=== PATIENT | male | born 1930 | race Caucasian/White ===

== ENCOUNTER 2017-04-08 09:29 | Outpatient (CLI) | payer MEDICARE, BC ==
[2017-04-08 13:25] LABS: BASOPHILS # (AUTO) 0.1 10^3/uL (0.0-0.1); BASOPHILS % (AUTO) 0.6 %; EOSINOPHILS # (AUTO) 0.4 10^3/uL (0.0-0.7); EOSINOPHILS % (AUTO) 3.6 %; HCT - HEMATOCRIT 47.3 % (42.0-52.0); LYMPHOCYTES # (AUTO) 3.4 10^3/uL (1.5-3.5); LYMPHOCYTES % (AUTO) 34.2 %; MEAN CORPUSCULAR HEMOGLOBIN 31.9 pg (27.0-31.0); MEAN CORPUSCULAR HGB CONC 33.8 g/dL (32.0-36.0); MEAN CORPUSCULAR VOLUME 94.4 fL (80.0-94.0); MEAN PLATELET VOLUME 8.5 fL (7.4-11.4); MONOCYTES # (AUTO) 1.1 10^3/uL (0.0-1.0); MONOCYTES % (AUTO) 10.8 %; NEUTROPHILS # (AUTO) 5.1 10^3/uL (1.5-6.6); NEUTROPHILS % (AUTO) 50.8 %; RED BLOOD COUNT 5.01 10^6/uL (4.70-6.10)
[2017-04-08 14:08] LABS: ALBUMIN/GLOBULIN RATIO 1.2 (1.0-2.2); BILIRUBIN,TOTAL 0.9 mg/dL (0.2-1.0); BUN - BLOOD UREA NITROGEN 13 mg/dL (6-20); CALCIUM 9.2 mg/dL (8.5-10.3); CARBON DIOXIDE - CO2 22 mmol/L (21-32); CHLORIDE 105 mmol/L (101-111); CHOL/HDL RATIO 4.2 (<5.0); CHOLESTEROL 206 mg/dL; GFR - MDRD 71 (>89); GLUCOSE 97 mg/dL (70-100); HDL CHOLESTEROL 49 mg/dL; LDL/HDL RATIO 2.6 (<3.6); SODIUM 136 mmol/L (135-145); TOTAL PROTEIN 7.6 g/dL (6.7-8.2); TRIGLYCERIDES 149 mg/dL; VLDL CHOLESTEROL 30 mg/dL
[2017-04-08 14:27] LABS: HEMOGLOBIN A1C 0.65 g/dL
== END 2017-04-08 09:30 | disposition home or self-care (01) ==
LOC: LAB.R 09:29
PROVIDERS: ATTEND Internal Medicine
DX: R73.9 Hyperglycemia, unspecified (principal); C61 Malignant neoplasm of prostate; M19.90 Unspecified osteoarthritis, unspecified site; K30 Functional dyspepsia; Z79.899 Other long term (current) drug therapy
CPT/HCPCS: 80053; 80061; 83036; 84153; 84443; 85025

== ENCOUNTER 2017-12-20 10:28 | Outpatient (CLI) | payer MEDICARE, BC | END 2017-12-20 10:29 | disposition home or self-care (01) | LOC: SC 10:28 | PROVIDERS: ATTEND Internal Medicine Pulmonary Disease | DX: G47.10 Hypersomnia, unspecified (principal); R06.81 Apnea, not elsewhere classified; R06.83 Snoring; G31.84 Mild cognitive impairment of uncertain or unknown etiology | CPT/HCPCS: 99203; G0463; 99212 ==

== ENCOUNTER 2018-02-03 20:45 | Outpatient (CLI) | payer MEDICARE, BC | END 2018-02-03 20:46 | disposition home or self-care (01) | LOC: SC 20:45 | PROVIDERS: ATTEND Internal Medicine Pulmonary Disease | DX: G47.33 Obstructive sleep apnea (adult) (pediatric) (principal); G47.61 Periodic limb movement disorder | CPT/HCPCS: 95810 ==

== ENCOUNTER 2018-02-22 11:05 | Outpatient (CLI) | payer MEDICARE, BC | END 2018-02-22 11:06 | disposition home or self-care (01) | LOC: SC 11:05 | PROVIDERS: ATTEND Internal Medicine Pulmonary Disease | DX: G47.33 Obstructive sleep apnea (adult) (pediatric) (principal) | CPT/HCPCS: 99213; G0463; 99212 ==

== ENCOUNTER 2018-04-27 20:46 | Outpatient (CLI) | payer MEDICARE, BC | END 2018-04-27 20:47 | disposition home or self-care (01) | LOC: SC 20:46 | PROVIDERS: ATTEND Internal Medicine Pulmonary Disease | DX: G47.33 Obstructive sleep apnea (adult) (pediatric) (principal); G47.61 Periodic limb movement disorder; R09.02 Hypoxemia | CPT/HCPCS: 95811 ==

== ENCOUNTER 2018-05-12 09:38 | Outpatient (CLI) | payer MEDICARE, BC | END 2018-05-12 09:39 | disposition home or self-care (01) | LOC: SC 09:38 | PROVIDERS: ATTEND Nurse Practitioner Family | DX: G47.33 Obstructive sleep apnea (adult) (pediatric) (principal); R09.02 Hypoxemia; G47.61 Periodic limb movement disorder | CPT/HCPCS: 99215; G0463; 99212 ==

== ENCOUNTER → 2018-05-19 | Outpatient (CLI) | payer MEDICARE, BC ==
[2018-05-19 13:43] LABS: BASOPHILS # (AUTO) 0.1 10^3/uL (0.0-0.1); BASOPHILS % (AUTO) 0.6 %; EOSINOPHILS # (AUTO) 0.3 10^3/uL (0.0-0.7); EOSINOPHILS % (AUTO) 2.9 %; HGB - HEMOGLOBIN 14.9 g/dL (14.0-18.0); LYMPHOCYTES # (AUTO) 3.1 10^3/uL (1.5-3.5); LYMPHOCYTES % (AUTO) 35.4 %; MEAN CORPUSCULAR HEMOGLOBIN 32.4 pg (27.0-31.0); MEAN CORPUSCULAR HGB CONC 34.1 g/dL (32.0-36.0); MEAN CORPUSCULAR VOLUME 95.2 fL (80.0-94.0); MEAN PLATELET VOLUME 8.3 fL (7.4-11.4); MONOCYTES # (AUTO) 1.1 10^3/uL (0.0-1.0); MONOCYTES % (AUTO) 12.4 %; NEUTROPHILS # (AUTO) 4.3 10^3/uL (1.5-6.6); NEUTROPHILS % (AUTO) 48.7 %; PLT - PLATELET COUNT 262 10^3/uL (130-450); WHITE BLOOD COUNT 8.8 x10^3/uL (4.8-10.8)
[2018-05-19 14:00] LABS: ALBUMIN 3.8 g/dL (3.2-5.5); ALBUMIN/GLOBULIN RATIO 1.2 (1.0-2.2); BILIRUBIN,TOTAL 0.9 mg/dL (0.2-1.0); CALCIUM 9.1 mg/dL (8.5-10.3); TOTAL PROTEIN 7.1 g/dL (6.7-8.2)
== END ==
LOC: LAB.R 08:54
PROVIDERS: ATTEND Internal Medicine
DX: C61 Malignant neoplasm of prostate (principal); Z79.899 Other long term (current) drug therapy; M19.90 Unspecified osteoarthritis, unspecified site; K30 Functional dyspepsia
CPT/HCPCS: 80053; 85025

== ENCOUNTER 2018-05-31 08:05 | Outpatient (CLI) | payer MEDICARE, BC ==
[2018-05-31 18:04] LABS: HB2 TOTAL 17.1 g/dL; HEMOGLOBIN A1C 0.62 g/dL; HEMOGLOBIN A1C % 5.5 % (4.6-6.2)
== END 2018-05-31 08:06 | disposition home or self-care (01) ==
LOC: LAB.R 08:05
PROVIDERS: ATTEND Internal Medicine
DX: C61 Malignant neoplasm of prostate (principal); R73.9 Hyperglycemia, unspecified
CPT/HCPCS: 82947; 83036; 84153

== ENCOUNTER 2018-06-08 09:19 | Outpatient (CLI) | payer MEDICARE, BC ==
--- NOTE | 2018-06-08 10:19 | XRAY Report ---
Reason: DYSPENA Procedure Date: 06/08/2018 Accession Number: [id number] / [id number] Procedure: XR - Chest 2 View X-Ray CPT Code: 64230 FULL RESULT: EXAM: CHEST RADIOGRAPHY EXAM DATE: 06/08/2018 09:23 AM. CLINICAL HISTORY: Dyspnea. COMPARISON: None. TECHNIQUE: 2 views. FINDINGS: Lungs/Pleura: Increased subtle opacity at the left lung base and right midlung. No sizable pleural effusion or pneumothorax. Mediastinum: Heart and mediastinal contours are unremarkable. Other: None. IMPRESSION: Subtle airspace opacities may represent atypical pneumonia. RADIA
== END 2018-06-08 09:20 | disposition home or self-care (01) ==
LOC: DI 09:19
PROVIDERS: ATTEND Internal Medicine
DX: R91.8 Other nonspecific abnormal finding of lung field (principal); R06.00 Dyspnea, unspecified
CPT/HCPCS: 71046; 94010

== ENCOUNTER 2018-06-13 09:49 | Outpatient (CLI) | payer MEDICARE, BC | END 2018-06-13 09:50 | disposition home or self-care (01) | LOC: SC 09:49 | PROVIDERS: ATTEND Nurse Practitioner Family | DX: G47.33 Obstructive sleep apnea (adult) (pediatric) (principal); R09.02 Hypoxemia | CPT/HCPCS: 99215; G0463; 99212 ==

== ENCOUNTER 2018-09-08 10:06 | Outpatient (CLI) | payer MEDICARE, BC | END 2018-09-08 10:07 | disposition home or self-care (01) | LOC: SC 10:06 | PROVIDERS: ATTEND Nurse Practitioner Family | DX: G47.33 Obstructive sleep apnea (adult) (pediatric) (principal); R09.02 Hypoxemia | CPT/HCPCS: 99214; G0463; 99212 ==

== ENCOUNTER 2018-10-19 08:21 | Outpatient (CLI) | payer MEDICARE, BC ==
[2018-10-19 08:45] LABS: BASOPHILS # (AUTO) 0.1 10^3/uL (0.0-0.1); BASOPHILS % (AUTO) 1.3 %; EOSINOPHILS # (AUTO) 0.2 10^3/uL (0.0-0.7); EOSINOPHILS % (AUTO) 2.4 %; LYMPHOCYTES # (AUTO) 3.1 10^3/uL (1.5-3.5); LYMPHOCYTES % (AUTO) 36.8 %; MEAN CORPUSCULAR HEMOGLOBIN 31.8 pg (27.0-31.0); MEAN CORPUSCULAR HGB CONC 33.2 g/dL (32.0-36.0); MEAN CORPUSCULAR VOLUME 95.6 fL (80.0-94.0); MEAN PLATELET VOLUME 7.5 fL (7.4-11.4); MONOCYTES % (AUTO) 11.6 %; NEUTROPHILS % (AUTO) 47.9 %; PLT - PLATELET COUNT 234 10^3/uL (130-450); RED BLOOD COUNT 4.73 10^6/uL (4.70-6.10); RED CELL DISTRIBUTION WIDTH 13.7 % (12.0-15.0); WHITE BLOOD COUNT 8.5 x10^3/uL (4.8-10.8)
[2018-10-19 08:51] LABS: CREATININE 0.9 mg/dL (0.6-1.2)
[2018-10-19 09:38] LABS: THYROID STIMULATING HORMONE 2.24 uIU/mL (0.34-5.60)
[2018-10-19 09:40] LABS: FREE T4 (FREE THYROXINE) 0.73 ng/dL (0.58-1.64)
== END 2018-10-19 08:22 | disposition home or self-care (01) ==
LOC: LAB 08:21
PROVIDERS: ATTEND Family Medicine
DX: I35.8 Other nonrheumatic aortic valve disorders (principal); R06.00 Dyspnea, unspecified; I27.20 Pulmonary hypertension, unspecified
CPT/HCPCS: 36415; 80048; 83880; 84439; 84443; 84481; 85025; 85027

== ENCOUNTER 2018-10-24 08:06 | Outpatient (CLI) | payer MEDICARE, BC | END 2018-10-24 08:07 | disposition home or self-care (01) | LOC: DI 08:06 | PROVIDERS: ATTEND Family Medicine | DX: I35.0 Nonrheumatic aortic (valve) stenosis (principal); I27.20 Pulmonary hypertension, unspecified; R06.00 Dyspnea, unspecified; I07.1 Rheumatic tricuspid insufficiency | CPT/HCPCS: 93306 ==

== ENCOUNTER 2018-12-09 08:16 | Outpatient (CLI) | payer MEDICARE, BC ==
[2018-12-09 08:42] LABS: BASOPHILS # (AUTO) 0.1 10^3/uL (0.0-0.1); BASOPHILS % (AUTO) 0.9 %; EOSINOPHILS # (AUTO) 0.2 10^3/uL (0.0-0.7); EOSINOPHILS % (AUTO) 2.8 %; HGB - HEMOGLOBIN 15.4 g/dL (14.0-18.0); LYMPHOCYTES # (AUTO) 2.5 10^3/uL (1.5-3.5); LYMPHOCYTES % (AUTO) 32.7 %; MEAN CORPUSCULAR HEMOGLOBIN 31.7 pg (27.0-31.0); MEAN CORPUSCULAR HGB CONC 33.5 g/dL (32.0-36.0); MEAN CORPUSCULAR VOLUME 94.7 fL (80.0-94.0); MEAN PLATELET VOLUME 7.6 fL (7.4-11.4); MONOCYTES # (AUTO) 0.8 10^3/uL (0.0-1.0); MONOCYTES % (AUTO) 10.4 %; NEUTROPHILS # (AUTO) 4.1 10^3/uL (1.5-6.6); NEUTROPHILS % (AUTO) 53.2 %; PLT - PLATELET COUNT 220 10^3/uL (130-450); RED BLOOD COUNT 4.85 10^6/uL (4.70-6.10); RED CELL DISTRIBUTION WIDTH 13.3 % (12.0-15.0); WHITE BLOOD COUNT 7.7 x10^3/uL (4.8-10.8)
[2018-12-09 08:47] LABS: INR 1.1 (0.8-1.2); PT - PROTHROMBIN TIME 12.4 secs (9.9-12.6)
[2018-12-09 08:52] LABS: CALCIUM 8.9 mg/dL (8.5-10.3)
== END 2018-12-09 08:17 | disposition home or self-care (01) ==
LOC: LAB 08:16
PROVIDERS: ATTEND Specialist
DX: Z01.818 Encounter for other preprocedural examination (principal); I35.0 Nonrheumatic aortic (valve) stenosis; R06.02 Shortness of breath
CPT/HCPCS: 36415; 80048; 85025; 85610

== ENCOUNTER 2019-01-17 23:06 | Emergency (ER) | payer MEDICARE, BC ==
--- NOTE | 2019-01-18 00:19 | XRAY Report ---
Reason: rule out bowel obstruction Procedure Date: 01/18/2019 Accession Number: [id number] / [id number] Procedure: XR - Abdomen Acute CPT Code: FULL RESULT: EXAM: ABDOMINAL SERIES AND PA CHEST EXAM DATE: 01/18/2019 12:05 AM. CLINICAL HISTORY: Rule out bowel obstruction. Little to no bowel movement. Audible bowel sounds. COMPARISON: CHEST 2 VIEW 06/08/2018 9:23 AM, CT ANGIOGRAM CHEST ABD 12/14/2018 11:43 AM. TECHNIQUE: 2 views abdomen and 1 view chest. FINDINGS: CHEST: Lungs/Pleura: No focal opacities with exception of mild bilateral scarring. No effusion or pneumothorax. Mediastinum: Normal heart size. Previous TAVR. No mediastinal shift. ABDOMEN: Bowel Gas Pattern: Within normal limits. No dilated loops or abnormal fluid levels. Free Air: None. Other: Old right rib fractures. IMPRESSION: No acute process seen in the chest or abdomen. RADIA
--- NOTE | 2019-01-18 01:29 | ED Physician Documentation ---
PD HPI ABD PAIN - Stated complaint Stated Complaint: CONSTIPATION - Chief complaint Chief Complaint: Abd Pain - History obtained from History obtained from: Patient - History of Present Illness Timing - onset: How many weeks ago (1-2) Timing - details: Gradual onset Pain level max: 3 Pain level now: 0 Quality: Cramping, Fullness/distended Location: All over / everywhere Associated symptoms: Constipation Recently seen: Surgery (TAVR 2 weeks ago, has been constipated since then) Review of Systems Constitutional: denies: Fever, Chills, Sweats GI: reports: Abdominal Pain (mild cramping discomfort, waxing and waning), Abdominal Swelling, Constipation. denies: Nausea, Vomiting PD PAST MEDICAL HISTORY - Past Medical History Past Medical History: Yes - Past Surgical History Past Surgical History: Yes General: Appendectomy Cardiovascular: Valve replacement HEENT: Cochlear implant - Present Medications Home Medications: Ambulatory Orders Medication Instructions Recorded Confirmed No Known Home Medications 04/25/15 05/04/15 - Allergies Allergies/Adverse Reactions: Allergies Allergy/AdvReac Type Severity Reaction Status Date / Time amoxicillin Allergy Rash Verified 01/17/19 23:20 - Social History Does the pt smoke?: No Smoking Status: Never smoker Does the pt drink ETOH?: Yes Does the pt have substance abuse?: No - Immunizations Immunizations are current?: Yes PD ED PE NORMAL - Vitals Vital signs reviewed: Yes - General General: Alert and oriented X 3, No acute distress, Well developed/nourished - Abdomen Abdomen: Normal bowel sounds, Soft, Non tender, Non distended Results - Vitals Vitals: Vital Signs - 24 hr 01/17/19 01/18/19 01/18/19 23:15 01:00 02:01 Temperature 36.6 C 36.4 C L Heart Rate 69 71 67 Respiratory 17 16 14 Rate Blood Pressure 142/79 H 126/74 110/82 H O2 Saturation 99 95 97 Oxygen O2 Source Room air - Rads (name of study) acute abdominal xrays Radiology: Prelim report reviewed, See rad report PD MEDICAL DECISION MAKING - ED course Complexity details: reviewed results, re-evaluated patient, considered differential, d/w patient ED course: NAD from clinical perspective. nonobstructive pattern on plain film xrays and nontender on exam. Will give fleets enema and magnesium citrate to go, to be taken once he is at home Departure - Departure Disposition: 01 Home, Self Care Clinical Impression: Constipation Condition: Good Health Concerns: constipation Plan of Treatment: fleets enema and magnesium citrate Care Goals: relief of symptoms Assessment: see diagnoses Instructions: ED Constipation Follow-Up: Rosendo Howard MD [Primary Care Provider] - Comments: Once you get home, use the fleets enema AND drink half of the magnesium citrate. If you do not have results within 2-3 hours, drink the other half of the bottle of magnesium citrate. If you still do not have results, you can repeat the fleet's enema (available [id number]) Discharge Date/Time: 01/18/19 02:04
[2019-01-18] MEDS ORDERED: MINERAL OIL ENEMA 133 ML BOTTLE RC STA (01:54)
[2019-01-18] MEDS ORDERED: MAGNESIUM CITRATE 296 ML BOTTLE PO STA (01:54)
[2019-01-18 02:02] VITALS: BP 110/82
== END 2019-01-18 02:04 | disposition home or self-care (01) ==
LOC: ED 23:06
DX: K59.00 Constipation, unspecified (principal)
CPT/HCPCS: 74022; 99282; 99283; A9270

== ENCOUNTER 2019-04-04 14:43 | Outpatient (CLI) | payer MEDICARE, BC ==
[2019-04-04 15:44] VITALS: BP 120/60
--- NOTE | 2019-04-04 15:44 | SLEEP CARE CONSULTATION ---
Information from patient questionnaire entered by Christy Morales. I have reviewed and concur with the information entered by Christy Morales. This document represents the service I personally performed and the decisions made by me, Tameka Lau, RN, MSN, SERVICE TECH. History of Present Illness Previous diagnosis: Moderate, Obstructive Sleep Apnea-Hypopnea Syndrome AHI: 18.0 Reason for CPAP/BiPAP follow up: six month Accompanied by: Spouse Equipment type: CPAP Equipment obtained from: [employer] (He is having problems getting supplies in timely manner and difficult to get ahold of anyone. He would like to transfer.) Mask style: Nasal (Dreamwear nasal cushion) Mask brand: Respironics Backup mask available: Yes Last cushion change: 3 weeks ago Prior sleep studies: Yes Year and Where: 2017 CPAP Compliance Data - Data Reviewed with Patient Average duration of nightly device use: 8H 52M Compliance rate %: 97.8 Current pressure setting (cmH2O): 9 Humidity settin Heated hose settin Average residual AHI: 0.5 On Oxygen: Yes (3 liters - repeat oximetry on 3 L not completed as ordered) Subjective Missed days of use due to: reports: other (hospitalized ) Patient concerns: reports: nasal congestion, dry mouth, nose, throat, other (gurgling type noise when patient sleeps supine, no condensation in hose or mask noted. ). denies: aerophagia, mask discomfort, air blowing in eyes, mask leak noise, condensation in mask/hose, epistaxis (mild) Observed to snore while using device: Yes (supine position -) Current pressure setting perceived as: comfortable On therapy, patient: reports: sleeping better, awakening more refreshed, being more awake and alert during the day, more rested overall. denies: drowsiness while driving (does not drive) Initial [place] Sleepiness Scale score: 6 Current [place] Sleepiness Scale score: 7 Allergies and Home Medications Allergy and home medication list: Medication Name (generic/name brand) Strength & Dosage Multivitamin Tab one daily Vitamin D3 2000unit cap one daily Preservision AREDS Cap one daily Vitamin C 1000mg tab one daily Pantoprazole Sodium Delayed Release 20mg tab one daily Plavix 75mg aspirin statin 81mg 1 tab daily Allergy List Amoxicillin Review of Systems Review of systems same as previous: No (heart valve replacement and 3 cardiac stents mid December) Physical Exam Blood Pressure: 120/60 Cuff size: regular Heart Rate: 73 O2 Saturation: 94 Height: 5 ft 3 in Weight (kg): 157 lb 12.8 oz Body Mass Index: 27.9 BMI Classification: Overweight Impression and Plan 1. Obstructive Sleep Apnea-Hypopnea Syndrome, moderate, with good treatment compliance and good apnea control. On CPAP therapy, the patient has better sleep quality and is more rested overall. For his snoring and gurgling type of noise noted when supine, I will change him to autoCPAP range of [id number]. He is to contact me if the pressure is uncomfortable or if it does not resolve symptoms. For his oral dryness, I showed him how his humidity setting has been decreased. He is advised to raise and instructed how on a sample CPAP as did not remember process. He would also like to consider a different mask style and a mask refitting was ordered. For patient supply concerns, I will transfer him to another DME. A DWO prescription will be made. Patient will be informed of his options by the research coordinator. Patient's apnea severity and rationale for treatment to reduce apnea, improve sleep quality and reduce cardiovascular and cerebrovascular events was reviewed. I also reviewed the benefit to his cardiac diseased. Since his apnea is primarily in the supine position, he is advised to avoid supine sleep with pillow positioning if unable to use CPAP. 2. Hypoxia, currently using 3 liters. Since his oxygen saturation was not rechecked with overnight pulse oximetry as ordered after his oxygen was increased to 3 liters, this will be ordered again. Patient advised to contact me if not completed. I explained to patient this is to ensure that oxygen setting is at correct level. * Change CPAP pressure to 10-12 cmH2O * Transfer of care * Increase humidity as shown * over night pulse oximetry * mask refitting * Notify me if snoring with mask or feeling that the pressure is too much or too little * Attempt to lose weight * Return for follow up in 1year , or sooner if concerns arise I spent 100% of this 35 minute visit face to face with the patient with greater than 50% of this was spent time counseling the patient and coordination of care. Patient had hearing deficit and more time taken for communication.
== END 2019-04-04 14:44 | disposition home or self-care (01) ==
LOC: SC 14:43
PROVIDERS: ATTEND Nurse Practitioner Family
DX: G47.33 Obstructive sleep apnea (adult) (pediatric) (principal); R09.02 Hypoxemia
CPT/HCPCS: 99214; G0463; 99212

== ENCOUNTER 2019-06-23 07:48 | Outpatient (CLI) | payer MEDICARE, BC | END 2019-06-23 07:49 | disposition home or self-care (01) | LOC: DI 07:48 | PROVIDERS: ATTEND Internal Medicine Cardiovascular Disease | DX: Z09 Encounter for follow-up examination after completed treatment for conditions other than malignant neoplasm (principal); Z95.2 Presence of prosthetic heart valve | CPT/HCPCS: 93306 ==

== ENCOUNTER 2019-08-28 08:53 | Outpatient (CLI) | payer MEDICARE, BC | END 2019-08-28 23:59 | disposition home or self-care (01) | LOC: LAB.R 08:53 | PROVIDERS: ATTEND Family Medicine | DX: N39.0 Urinary tract infection, site not specified (principal) | CPT/HCPCS: 87077; 87086; 87181 ==

== ENCOUNTER 2019-08-30 09:44 | Outpatient (CLI) | payer MEDICARE, BC ==
--- NOTE | 2019-08-31 12:51 | CT Report ---
Reason: HILAR ADENOPATHY,LUNG NODULE Procedure Date: 08/30/2019 Accession Number: [id number] / [id number] Procedure: CT - CHEST WO CPT Code: Final Report FULL RESULT: EXAM: CT CHEST EXAM DATE: 08/30/2019 10:15 AM. CLINICAL HISTORY: Hilar adenopathy, lung nodule. COMPARISONS: ABDOMEN ACUTE 01/17/2019 11:51 PM. TECHNIQUE: Routine helical CT imaging was performed through the chest. IV contrast: None. Reconstructions: Coronal and sagittal. In accordance with CT protocol optimization, one or more of the following dose reduction techniques were utilized for this exam: automated exposure control, adjustment of mA and/or KV based on patient size, or use of iterative reconstructive technique. FINDINGS: Lungs/Pleura: Scattered calcified granulomas in both lungs. There are also several scattered noncalcified lung nodules on series 4. These include a 2 mm left upper lobe nodule on image 61, 7 mm left lower lobe nodule on image 138 and 4 mm left upper lobe nodule on image 137. Mild centrilobular emphysema. There is prominent reticular opacity and cystic change within both upper lobes with subpleural sparing. Dependent bilateral lower lobe reticular opacity probably from fibrotic change. Mediastinum: Prior TAVR. Extensive LAD coronary arterial calcification. No pericardial effusion. Shotty mediastinal lymph nodes. Elongated subcarinal lymph node with a normal 0.8 cm short axis extends 2.8 cm in length. No bulky adenopathy. Bones: Old mild T4 and T7 vertebral body compression deformities. Mild thoracic spine degenerative changes. Lower cervical spine degenerative changes are more pronounced. Visualized Abdomen: Numerous small dependent gallstones. Gallbladder neck stone. No pericholecystic edema. Other: None. IMPRESSION: 1. Interstitial lung disease and emphysema. Bilateral upper lobe reticular cystic changes with subpleural sparing. Question NSIP. Probable posterior bilateral lower lobe fibrotic changes. 2. Remote granulomatous disease. 3. Several subcentimeter noncalcified left lung nodules measuring up to 7 mm in left lower lobe. Consider 3 to 6-month followup with low-dose noncontrast chest CT. 4. Cholelithiasis. Cielo Walters et al. Guidelines for Management of Incidental Pulmonary Nodules Detected on CT Images: From the Fleischner Society 2017. Radiology (2017). RADIA
== END 2019-08-30 09:45 | disposition home or self-care (01) ==
LOC: DI 09:44
PROVIDERS: ATTEND Family Medicine
DX: J43.9 Emphysema, unspecified (principal); J84.9 Interstitial pulmonary disease, unspecified; R91.8 Other nonspecific abnormal finding of lung field; K80.20 Calculus of gallbladder without cholecystitis without obstruction
CPT/HCPCS: 71250

== ENCOUNTER 2020-06-18 08:46 | Outpatient (CLI) | payer MEDICARE, BC ==
--- NOTE | 2020-06-18 11:10 | CT Report ---
PROCEDURE: Sinuses INDICATIONS: CHRONIC PANSINUSITIS TECHNIQUE: Noncontrast 3.0 mm axial images acquired from the frontal sinuses to the mid-sella, with coronal and sagittal reformats. For radiation dose reduction, the following was used: automated exposure control , adjustment of mA and/or kV according to patient size. COMPARISON: None. FINDINGS: Image quality: Excellent. Maxillary Sinuses: There is complete opacification of the maxillary sinuses. The medial copeland of the maxillary sinuses are demineralized. The other copeland of the maxillary sinuses appear thickened. Ethmoid Air Cells: There is near complete opacification of the ethmoid air cells, right worse than le ft. The bony septations of the ethmoid air cells are demineralized. Sphenoid Sinuses: There is complete opacification of the left sphenoid sinus. Mild to moderate mucosa l thickening is seen of the anterior right sphenoid sinus. The copeland of the sphenoid sinuses are thic kened. Frontal Sinuses: There is complete opacification of the right frontal sinuses. Moderate mucosal thick ening is seen of the left frontal sinuses inferomedially. There is thickening of the copeland of the fro ntal sinuses. Ostiomeatal Complexes: Completely occluded and demineralized. Miscellaneous: Visualized intra-orbital contents are normal. No archana bullosa. No nasal septal de viation. A right-sided cochlear implant can be seen. IMPRESSION: Prominent areas of sinus opacification are seen, with chronic bony changes, diagnostic of chronic sin usitis. Reviewed by: Neal Ivey MD on 06/18/2020 10:08 AM [facility] Approved by: Neal Ivey MD on 06/18/2020 10:08 AM [facility] Station ID: [id number]
== END 2020-06-18 08:47 | disposition home or self-care (01) ==
LOC: DI 08:46
PROVIDERS: ATTEND Otolaryngology
DX: J32.9 Chronic sinusitis, unspecified (principal)
CPT/HCPCS: 70486

== ENCOUNTER 2020-07-31 14:09 | Outpatient (CLI) | payer MEDICARE, BC ==
--- OUTSIDE RECORDS SUMMARY | 2020-07-31 14:12 | EXTERNAL MEDICAL SUMMARY RPT | Continuity of Care Document ---
:1930 Demographics Phone Unavailable Preferred Language Iraqi Marital Status Unknown Anglican Affiliation Unknown Race Unknown Ethnic Group Unknown Author Organization [place] Address [address] [place] [address] Phone Care Team Providers Name Role Phone MD Unavailable Unavailable Demmler Unavailable Unavailable Problems date description facility 2020-06-18 08:46 CHRONIC PANSINUSITIS [facility] 2020-06-18 09:00 CHRONIC PANSINUSITIS [facility] 2020-07-17 00:00:00 TSH WITH REFLEX TO FT4 [facility] [place] [facility] 2020-07-17 00:00:[address] [facility] unspecified type of vessel, [place] [facility] [place] or graft 2020-07-17 00:00:00 Unspecified sinusitis (chronic) [facility] [place] [facility] 2020-07-17 00:00:00 Spasm of muscle [facility] [place] [facility] 2020-07-17 00:00:00 Abnormal chest sounds [facility] P rimary Care [facility] 2020-07-17 00:00:00 Routine general medical [facility] examination at a [facility] facility 2020-07-17 00:00:00 X-RAY EXAM CHEST 2 VIEWS [facility] [place] [facility] 2020-07-17 00:00:00 COMPREHENSIVE METABOLIC PANEL [facility] [place] [facility] 2020-07-17 00:00:00 LIPIDS SCREEN [facility] [place] [facility] 2020-07-17 00:00:00 HGBA1C [facility] [place] [facility] 2020-07-17 00:00:00 B-SHOE REPAIRMAN [facility] [place] [facility] 2020-07-17 00:00:00 PSA, SCREENING [facility] [place] [facility] 2020-07-17 00:00:00 CBC W/Diff/Plt [facility] [place] [facility] 2020-07-17 00:00:00 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 medical examination without [place] [facility] abnormal findings 2020-07-17 00:00:00 [facility] [place] [facility] 2020-07-17 00:00:00 Preventive procedure [facility] Pr imary Care [place] [facility] 2020-07-17 00:00:00 [facility] [place] [facility] 2020-07-17 00:00:00 Tobacco use and exposure [facility] [place] [facility] 2020-07-17 00:00:00 [facility] [place] [facility] 2020-07-17 00:00:00 Details of drug misuse behavior [facility] [place] [facility] 2020-07-17 00:00:00 [facility] [place] [facility] 2020-07-17 00:00:00 Little interest or pleasure in [facility] doing things? [place] [facility] 2020-07-17 00:00:00 Feeling down, depressed, or [facility] hopeless? [place] [facility] 2020-07-17 00:00:00 [facility]asm [facility] [place] [facility] 2020-07-17 00:00:00 Respiratory crackles [facility] [place] [facility] 2020-07-17 00:00:00 [facility]iosclerosis [facility] [place] [facility] 2020-07-17 00:00:00 [facility] [place] [facility] 2020-07-17 00:00:00 [facility] [place] [facility] 2020-07-17 00:00:00 Former smoker [facility] [place] [facility] Procedures date description facility 2020-07-17 00:00:00 ANNUAL WELLNESS VISIT, [facility] SUBSEQUENT [place] [facility] date description facility 2020-07-17 00:00:00 [facility] [place] [facility] Social History date description facility 2020-07-17 00:00:00 Former smoker [facility] [place] [facility] Social History date description facility 2020-07-17 00:00:00 Former smoker [facility] [place] [facility] date description facility [id number]
--- NOTE | 2020-07-31 16:33 | XRAY Report ---
PROCEDURE: Chest 2 View X-Ray INDICATIONS: RESPIRTORY CRACLES TECHNIQUE: 2 view(s) of the chest. COMPARISON: Chest x-ray 06/08/2018. Chest CT scan 08/30/2019. FINDINGS: Surgical changes and devices: Aortic valve prosthesis. Lungs and pleura: No pleural effusions or pneumothorax. Subtle airspace opacities in the left lung b ase and right midlung. Mediastinum: Mediastinal contours are normal. Heart size is normal. Bones and chest wall: Chronic right rib fractures which have healed in slight deformity. No suspicio us bony abnormalities. Soft tissues appear unremarkable. IMPRESSION: Subtle airspace opacities in the lungs bilaterally possibly related to atypical/viral pneumonia. Reviewed by: Alessia Velázquez MD, PhD on 07/31/2020 4:31 PM PST Approved by: Alessia Velázquez MD, PhD on 07/31/2020 4:31 PM PST Station ID: [id number]
== END 2020-07-31 14:10 | disposition home or self-care (01) ==
LOC: DI 14:09
PROVIDERS: ATTEND Family Medicine
DX: R09.89 Other specified symptoms and signs involving the circulatory and respiratory systems (principal); R91.8 Other nonspecific abnormal finding of lung field

== ENCOUNTER 2020-08-21 08:00 | Outpatient (CLI) | payer MEDICARE, BC ==
[2020-08-21 09:09] LABS: BASOPHILS # (AUTO) 0.1 10^3/uL (0.0-0.1); BASOPHILS % (AUTO) 0.5 %; EOSINOPHILS # (AUTO) 0.3 10^3/uL (0.0-0.7); EOSINOPHILS % (AUTO) 3.3 %; HGB - HEMOGLOBIN 12.6 g/dL (14.0-18.0); LYMPHOCYTES # (AUTO) 2.6 10^3/uL (1.5-3.5); LYMPHOCYTES % (AUTO) 25.8 %; MEAN CORPUSCULAR HGB CONC 32.4 g/dL (32.0-36.0); MEAN CORPUSCULAR VOLUME 95.6 fL (80.0-94.0); MEAN PLATELET VOLUME 8.6 fL (7.4-11.4); MONOCYTES # (AUTO) 1.1 10^3/uL (0.0-1.0); PLT - PLATELET COUNT 323 10^3/uL (130-450); RED BLOOD COUNT 4.07 10^6/uL (4.70-6.10); RED CELL DISTRIBUTION WIDTH 12.9 % (12.0-15.0); WHITE BLOOD COUNT 10.2 x10^3/uL (4.8-10.8)
[2020-08-21 09:57] LABS: ALBUMIN 3.6 g/dL (3.2-5.5); ALBUMIN/GLOBULIN RATIO 1.1 (1.0-2.2); ALKALINE PHOSPHATASE 116 IU/L (42-121); ALT ALANINE AMINOTRANSFERASE 16 IU/L (10-60); AST ASPARTATE AMINOTRANSFERASE 18 IU/L (10-42); BILIRUBIN,TOTAL 0.4 mg/dL (0.2-1.0); BUN - BLOOD UREA NITROGEN 17 mg/dL (6-20); CALCIUM 9.1 mg/dL (8.5-10.3); CARBON DIOXIDE - CO2 21 mmol/L (21-32); CHLORIDE 106 mmol/L (101-111); CHOL/HDL RATIO 2.8 (<5.0); CHOLESTEROL 122 mg/dL; CREATININE 0.8 mg/dL (0.6-1.2); GLUCOSE 97 mg/dL (70-100); HDL CHOLESTEROL 44 mg/dL; LDL CHOLESTEROL,CALCULATED 51 mg/dL; LDL/HDL RATIO 1.2 (<3.6); TOTAL PROTEIN 6.8 g/dL (6.7-8.2); VLDL CHOLESTEROL 27 mg/dL
[2020-08-21 12:41] LABS: HEMOGLOBIN A1c% 5.5 % (4.27-6.07)
== END 2020-08-21 23:59 | disposition home or self-care (01) ==
LOC: LAB 08:00
PROVIDERS: ATTEND Family Medicine
DX: R09.89 Other specified symptoms and signs involving the circulatory and respiratory systems (principal); I35.0 Nonrheumatic aortic (valve) stenosis; G47.39 Other sleep apnea; I27.20 Pulmonary hypertension, unspecified; R73.02 Impaired glucose tolerance (oral); C61 Malignant neoplasm of prostate; K21.9 Gastro-esophageal reflux disease without esophagitis; Z95.2 Presence of prosthetic heart valve; R06.09 Other forms of dyspnea; I25.10 Atherosclerotic heart disease of native coronary artery without angina pectoris
CPT/HCPCS: 36415; 80053; 80061; 83036; 83721; 83880; 84153; 84443; 85025

== ENCOUNTER 2020-08-25 11:20 | Emergency (ER) | payer MEDICARE, BC ==
--- NOTE | 2020-08-25 12:02 | ED Physician Documentation ---
PD HPI CHEST PAIN - Stated complaint Stated Complaint: SOA,CHEST TIGHTNESS - Chief complaint Chief Complaint: Cardiac - History obtained from History obtained from: Patient - History of Present Illness Timing - onset: How many hours ago (1), Today Timing - onset during: Light activity (vaccuming) Timing - duration: Hours (1) Timing - details: Gradual onset Pain level max: 1 Pain level now: 1 Quality: Tightness Location: No: Substernal, Left chest, Right chest, Left shoulder/arm, Right shoulder/arm, Left neck, Right neck, Left jaw, Right jaw, Epigastric, Upper back Radiation: No: Jaw, Neck, Back, Abdominal, Left upper extremity, Right upper extremity Improved by: Rest (resolved upon arrival to the ED) Worsened by: No: Exertion, Inspiration, Eating, Movement, Palpation, Position Associated symptoms: Shortness of air, Feeling faint / dizzy. No: Diaphoresis, Nausea, Vomiting, General Weakness, Palpitations, Cough Recently seen: Not recently seen - Additional information Additional information: 89-year-old male presents to the emergency department stating he had chest tightness earlier today. He states that it started after vacuuming today. Has a history of cardiac stents. States this does not feel similar to any prior cardiac events. His stents were placed about a year ago at [facility] in [place]. 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 No cough. No congestion. No fevers. Review of Systems Constitutional: denies: Fever, Chills Ears: denies: Ear pain Throat: denies: Sore throat Cardiac: denies: Chest pain / pressure Respiratory: denies: Cough, Wheezing GI: denies: Vomiting, Diarrhea Skin: denies: Rash Musculoskeletal: denies: Neck pain, Back pain Neurologic: denies: Headache PD PAST MEDICAL HISTORY - Past Medical History Cardiovascular: Hypertension, Valve disorder - Past Surgical History Past Surgical History: Yes General: Appendectomy Cardiovascular: Coronary stent, Valve replacement HEENT: Cochlear implant - Present Medications Home Medications: Ambulatory Orders Medication Instructions Recorded Confirmed Aspirin [Aspirin EC] 1 tab PO DAILY 08/25/20 08/25/20 Atorvastatin Calcium 1 tab PO DAILY 08/25/20 08/25/20 Bimatoprost 0.01% Ophth Dops 2 drops TOP DAILY 08/25/20 08/25/20 [Lumigan 0.01% Ophth Drops] Metoprolol Succinate [Toprol Xl] 25 mg PO DAILY 08/25/20 08/25/20 - Allergies Allergies/Adverse Reactions: Allergies Allergy/AdvReac Type Severity Reaction Status Date / Time amoxicillin Allergy Rash Verified 08/25/20 11:41 - Social History Does the pt smoke?: No Smoking Status: Never smoker Does the pt drink ETOH?: Yes Does the pt have substance abuse?: No - Immunizations Immunizations are current?: Yes PD ED PE NORMAL - Vitals Vital signs reviewed: Yes - General General: Alert and oriented X 3, No acute distress - HEENT HEENT: PERRL, Moist mucous membranes - Neck Neck: Supple, no meningeal sign, No JVD, No bruit - Cardiac Cardiac: RRR, Strong equal pulses - Respiratory Respiratory: No respiratory distress, Clear bilaterally - Abdomen Abdomen: Soft, Non tender, Non distended - Derm Derm: Warm and dry - Extremities Extremities: No edema, No calf tenderness / cord - Neuro Neuro: Alert and oriented X 3, slag mixer 2-12 intact, No motor deficit, No sensory deficit, Normal speech - Psych Psych: Normal mood, Normal affect Results - Vitals Vitals: Vital Signs - 24 hr 08/25/20 08/25/20 08/25/20 11:25 13:41 14:08 Temperature 36.5 C Heart Rate 71 65 60 Respiratory 17 12 14 Rate Blood Pressure 157/81 H 129/60 O2 Saturation 99 98 08/25/20 15:00 Temperature 36.6 C Heart Rate 62 Respiratory 17 Rate Blood Pressure 135/58 H O2 Saturation 95 Oxygen O2 Source Room air - EKG (time done) 1129 Rate: Rate (enter#) (70) Rhythm: NSR Hull: Normal Intervals: Normal GA QRS: Normal Ischemia: Normal ST segments - Labs Labs: Laboratory Tests 08/25/20 08/25/20 08/25/20 11:28 12:26 12:26 WBC 12.9 H RBC 4.20 L Hgb 13.2 L Hct 39.8 L MCV 94.8 H MCH 31.4 H MCHC 33.2 RDW 12.8 Plt Count 364 MPV 9.2 Neut # (Auto) 6.6 Lymph # (Auto) 4.5 H Emanuel # (Auto) 1.3 H Eos # (Auto) 0.3 Baso # (Auto) 0.1 Absolute Nucleated RBC 0.00 Nucleated RBC % 0.0 Sodium 139 Potassium 4.0 Chloride 103 Carbon Dioxide 22 Anion Gap 14.0 H BUN 20 Creatinine 0.8 Estimated GFR (MDRD) 91 Glucose 116 H Calcium 9.2 Total Bilirubin 0.8 AST 59 H ALT 32 Alkaline Phosphatase 136 H Troponin I High Sens 7.5 Total Protein 7.2 Albumin 3.6 Globulin 3.6 Albumin/Globulin Ratio 1.0 Lipase 28 08/25/20 14:14 WBC RBC Hgb Hct MCV MCH MCHC RDW Plt Count MPV Neut # (Auto) Lymph # (Auto) Emanuel # (Auto) Eos # (Auto) Baso # (Auto) Absolute Nucleated RBC Nucleated RBC % Sodium Potassium Chloride Carbon Dioxide Anion Gap BUN Creatinine Estimated GFR (MDRD) Glucose Calcium Total Bilirubin AST ALT Alkaline Phosphatase Troponin I High Sens 7.9 Total Protein Albumin Globulin Albumin/Globulin Ratio Lipase - Rads (name of study) cxr Radiology: Prelim report reviewed, EMP read contemporaneously, See rad report (Findings consistent with known interstitial lung disease without evidence of focal consolidation or other acute abnormality.) PD MEDICAL DECISION MAKING - ED course Complexity details: reviewed results, re-evaluated patient, considered differential (No ST elevation IN, no aortic dissection, no PE, no tension pneumothorax, no aortic aneurysm), d/w patient ED course: 89-year-old male presents to the emergency department with chest tightness today. Resolved prior to arrival in the emergency department. Negative high- sensitivity troponin x2. No acute findings on EKG. He does feel better after albuterol. No evidence of PE. Does not want to stay in the hospital for observation for further rule out. He will follow up with his doctor for further care. Patient counseled regarding signs and symptoms for which I believe and urgent re-evaluation would be necessary. Patient with good understanding of and agreement to plan and is comfortable going home at this time This document was made in part using voice recognition software. While efforts are made to proofread this document, sound alike and grammatical errors may occur. Departure - Departure Disposition: 01 Home, Self Care Clinical Impression: Chest pain Qualifiers: Chest pain type: unspecified Qualified Code(s): R07.9 - Chest pain, unspecified Condition: Good Instructions: ED Chest Pain Atypical Unkn Cause Follow-Up: your,doctor in 3 days [Other] Comments: Your testing is normal today. It does not show any acute abnormalities. Follow-up with your doctor tomorrow for further care. They may want to perform a cardiac stress test or repeat an angiogram. 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 Return if you worsen. Discharge Date/Time: 08/25/20 15:09
[2020-08-25 12:03] LABS: BASOPHILS # (AUTO) 0.1 10^3/uL (0.0-0.1); BASOPHILS % (AUTO) 0.5 %; EOSINOPHILS # (AUTO) 0.3 10^3/uL (0.0-0.7); EOSINOPHILS % (AUTO) 2.4 %; HCT - HEMATOCRIT 39.8 % (42.0-52.0); HGB - HEMOGLOBIN 13.2 g/dL (14.0-18.0); LYMPHOCYTES # (AUTO) 4.5 10^3/uL (1.5-3.5); LYMPHOCYTES % (AUTO) 34.9 %; MEAN CORPUSCULAR HEMOGLOBIN 31.4 pg (27.0-31.0); MEAN CORPUSCULAR HGB CONC 33.2 g/dL (32.0-36.0); MEAN CORPUSCULAR VOLUME 94.8 fL (80.0-94.0); MEAN PLATELET VOLUME 9.2 fL (7.4-11.4); MONOCYTES # (AUTO) 1.3 10^3/uL (0.0-1.0); MONOCYTES % (AUTO) 10.4 %; NEUTROPHILS # (AUTO) 6.6 10^3/uL (1.5-6.6); NEUTROPHILS % (AUTO) 51.4 %; PLT - PLATELET COUNT 364 10^3/uL (130-450); RED CELL DISTRIBUTION WIDTH 12.8 % (12.0-15.0); WHITE BLOOD COUNT 12.9 x10^3/uL (4.8-10.8)
--- NOTE | 2020-08-25 12:16 | XRAY Report ---
PROCEDURE: Chest 1 View X-Ray INDICATIONS: Chest Pain TECHNIQUE: One view of the chest was acquired. COMPARISON: 07/31/2020; CT chest dated 08/30/2019 FINDINGS: Overlying EKG wires. Surgical changes and devices: None. Lungs and pleura: Subtle prominence of the interstitium is unchanged from prior examinations. No foca l consolidation, pneumothorax, or pleural effusion. Mediastinum: Mediastinal contours appear normal. Heart size is normal. Bones and chest wall: No suspicious bony lesions. Remote right-sided rib fractures. No acute osseou s abnormality. Age-appropriate degenerative changes. Overlying soft tissues appear unremarkable. IMPRESSION: Findings consistent with known interstitial lung disease without evidence of focal consolidation or o ther acute abnormality. Reviewed by: Nathen Alejo DO on 08/25/2020 11:15 AM LUL Approved by: Nathen Alejo DO on 08/25/2020 11:15 AM LUL Station ID: [id number]
[2020-08-25 12:54] LABS: ALBUMIN 3.6 g/dL (3.2-5.5); BILIRUBIN,TOTAL 0.8 mg/dL (0.2-1.0); CALCIUM 9.2 mg/dL (8.5-10.3); CREATININE 0.8 mg/dL (0.6-1.2); TOTAL PROTEIN 7.2 g/dL (6.7-8.2)
[2020-08-25] MEDS ORDERED: ALBUTEROL 1 PUFF INH STA (13:53)
[2020-08-25 15:03] VITALS: BP 135/58
== END 2020-08-25 15:09 | disposition home or self-care (01) ==
LOC: ED 11:20
DX: R07.89 Other chest pain (principal); Z95.4 Presence of other heart-valve replacement; I10 Essential (primary) hypertension
CPT/HCPCS: 36415; 80053; 83690; 84484; 85025; 93005; 94640; 99284

== ENCOUNTER 2020-09-10 14:15 | Outpatient (CLI) | payer MEDICARE, BC ==
--- NOTE | 2020-09-10 14:37 | SLEEP CARE CONSULTATION ---
Information from patient questionnaire entered by Jeffry Morgan. I have reviewed and concur with the information entered by Jeffry Morgan. This document represents the service I personally performed and the decisions made by , Kristen Tolliver ARNP. History of Present Illness Service Date and Time: 09/10/2020 1420 Previous diagnosis: Moderate, Obstructive Sleep Apnea-Hypopnea Syndrome AHI: 18.0 Reason for follow up: annual (Last seen 03/2019) Accompanied by: Spouse Equipment type: CPAP Equipment obtained from: [employer] (getting supplies as needed) Mask style: Nasal (Dreamwear nasal cushion) Backup mask available: Yes (old mask) Last cushion change: 1 week ago Prior sleep studies: Yes Year and Where: 2018 [facility] HPI additional information: NICHELLE MATNILLA was diagnosed to have moderate, AHI 18.0, obstructive sleep apnea- hypopnea syndrome and returns via Telehealth visit today with spouse for CPAP therapy annual follow-up. Sleep Study - Results Prior sleep studies: Yes Year and Where: 2017 CPAP Compliance Data - Data Reviewed with Patient Average duration of nightly device use: 9 h 39 min Compliance rate %: 98.9 Current pressure setting (cmH2O): 10-12 Humidity settin Heated hose settin Average residual AHI: 0.2 Average large leak: 14 sec Subjective Patient concerns: reports: nasal congestion, dry mouth, nose, throat (dry nose), other ( states he is gurgling at sleep onset). denies: aerophagia, mask discomfort, air blowing in eyes, mask leak noise, condensation in mask/hose, epistaxis Observed to snore while using device: No Current pressure setting perceived as: too low On therapy, patient: reports: sleeping better, awakening more refreshed, being more awake and alert during the day, more rested overall. denies: drowsiness while driving Initial Reading Sleepiness Scale score: 6 (in 2018) Current Reading Sleepiness Scale score: 6 Allergies and Home Medications Drug allergies reviewed: Yes (amoxicillin) Home medication list reviewed: Yes Allergy and home medication list: baby aspirin Metoprolol Atorvastatin Amlodipine 10 mg daily, new BP medication Review of Systems Review of systems same as previous: Yes (no changes) Physical Exam Vital signs obtained and entered by: Telehealth visit today to reduce exposure during Covid pandemic Height: 5 ft 5 in Impression and Plan 1. Obstructive Sleep Apnea-Hypopnea Syndrome, moderate, with good treatment compliance and good apnea control. On CPAP therapy, the patient has better sleep quality and is more rested overall. He has been having some nasal congestion and nasal dryness. His machine is set with heated hose at 2 and humidity at 2. I advised him to increase the humidity to 3. Nasal congestion can be reduced with increasing the CPAP humidity as shown on sample device. The heated hose can be adjusted higher if condensation with higher humidity setting. Saline nasal spray can be used prior to CPAP to clear nasal secretions and wash off any nasal allergens to facilitate nasal breathing. In addition, a steamy shower before bed will often assist nasal drainage. Nasal dryness can be reduced with increasing the CPAP humidity. Patient increased setting while we were on the phone. He thinks the pressure is a little too low. I will increase his pressure to 11-13 cmH2O and have him follow up in 1-2 mo nths. He is to call if the pressure feels too much, not enough or he develops aerophagia. Patient's apnea severity and rationale for treatment to reduce apnea, improve sleep quality and reduce cardiovascular and cerebrovascular events was reviewed. I also reviewed the benefit of consistent device use of CPAP for cardiac disease. * Change auto CPAP pressure to 11-13 cmH2O * Notify me if snoring with mask or feeling that the pressure is too much or too little * Attempt to lose weight * Call this office if any problems using CPAP * Return for follow up in 1-2 months, or sooner if concerns arise Counseling Topics: Spare mask, Weight loss health impact Visit Type: Telehealth Video Video Type: VSee Patient Location: Home Other Participants: Spouse/Significant Other Location of Provider: Office Patient agrees and consents to this telehealth visit type: Yes Patient agrees to have their insurance billed: Yes Time Spent with Patient (minutes): 20 Provider Statement: I spent 100% of the Telehealth Video Call with the patient with greater than 50% spent counseling the patient and coordination of care.
== END 2020-09-10 14:16 | disposition home or self-care (01) ==
LOC: SC 14:15
PROVIDERS: ATTEND Nurse Practitioner Family
DX: G47.33 Obstructive sleep apnea (adult) (pediatric) (principal)

== ENCOUNTER 2020-10-10 07:51 | Outpatient (CLI) | payer MEDICARE, BC | END 2020-10-10 07:52 | disposition home or self-care (01) | LOC: DI 07:51 | PROVIDERS: ATTEND Family Medicine | DX: I25.10 Atherosclerotic heart disease of native coronary artery without angina pectoris (principal); I08.2 Rheumatic disorders of both aortic and tricuspid valves | CPT/HCPCS: 93306 ==

== ENCOUNTER 2020-10-15 11:20 | Outpatient (CLI) | payer MEDICARE, BC ==
--- NOTE | 2020-10-15 11:33 | SLEEP CARE CONSULTATION ---
Information from patient questionnaire entered by Nahed Garcia. I have reviewed and concur with the information entered by Nahed Garcia. This document represents the service I personally performed and the decisions made by , Kristen Tolliver ARNP. History of Present Illness Service Date and Time: 10/15/2020 1120 Previous diagnosis: Moderate, Obstructive Sleep Apnea-Hypopnea Syndrome AHI: 18.0 (in 2018) Reason for follow up: one month (with pressure change) Accompanied by: Spouse Equipment type: CPAP Equipment obtained from: CME (getting supplies as needed) Mask style: Nasal Mask brand: Respironics (Dreamwear) Backup mask available: Yes (old mask) Last cushion change: yesterday Prior sleep studies: Yes Year and Where: 2018 - [facility] Type of Sleep Study: Polysomnography HPI additional information: NICHELLE MANTILLA was diagnosed to have moderate, AHI 18.0, obstructive sleep apnea- hypopnea syndrome and returns via Telehealth visit today with spouse for CPAP therapy 1 month pressure change follow-up. CPAP Compliance Data - Data Reviewed with Patient Average duration of nightly device use: 9 hr 11min Compliance rate %: 100 Current pressure setting (cmH2O): 11-13 Humidity settin Heated hose settin Average residual AHI: 0.3 Average large leak: 2 min 24 sec Subjective Patient concerns: denies: aerophagia, mask discomfort, air blowing in eyes, mask leak noise, condensation in mask/hose, nasal congestion, dry mouth, nose, throat, epistaxis, other Observed to snore while using device: No Current pressure setting perceived as: comfortable On therapy, patient: reports: sleeping better, awakening more refreshed, being more awake and alert during the day, more rested overall. denies: drowsiness while driving Initial Homer Sleepiness Scale score: 6 (in 2018) Current [place] Sleepiness Scale score: 6 Allergies and Home Medications Home medication list reviewed: Yes (no changes) Review of Systems Review of systems same as previous: Yes (no changes) Physical Exam Vital signs obtained and entered by: Telehealth visit to limit exposure during Covid pandemic Height: 5 ft 5 in Impression and Plan 1. Obstructive Sleep Apnea-Hypopnea Syndrome, moderate, with excellent treatment compliance and excellent apnea control. On CPAP therapy, the patient has better sleep quality and is more rested overall. He feels the pressure is comfortable and has significant improvement of his apnea. He has no other issues or concerns today. I will have him followup in 1 year. Patient's apnea severity and rationale for treatment to reduce apnea, improve sleep quality and reduce cardiovascular and cerebrovascular events was reviewed. I also reviewed the benefit of consistent device use of CPAP for cardiac disease. * Continue autoCPAP pressure at 11-13 cmH2O * Notify me if snoring with mask or feeling that the pressure is too much or too little * Attempt to lose weight * Call this office if any problems using CPAP * Return for follow up in 1 year, or sooner if concerns arise Counseling Topics: Spare mask, Weight loss health impact Visit Type: Telehealth Video Video Type: VSee Patient Location: Home Other Participants: Spouse/Significant Other Location of Provider: Office Patient agrees and consents to this telehealth visit type: Yes Patient agrees to have their insurance billed: Yes Time Spent with Patient (minutes): 14 Provider Statement: I spent 100% of the Telehealth Video Call with the patient with greater than 50% spent counseling the patient and coordination of care.
== END 2020-10-15 11:21 | disposition home or self-care (01) ==
LOC: SC 11:20
PROVIDERS: ATTEND Nurse Practitioner Family
DX: G47.33 Obstructive sleep apnea (adult) (pediatric) (principal)

== ENCOUNTER 2020-10-17 12:24 | Outpatient (CLI) | payer MEDICARE, BC ==
[2020-10-17] MEDS ORDERED: REGADENOSON 0.4 MG/5 ML SYRINGE IVP ONE ×2 (14:49→15:22)
[2020-10-17] MEDS ORDERED: AMINOPHYLLINE 500 MG/20 ML VIAL ONE (14:53)
--- NOTE | 2020-10-17 16:39 | CARDIAC PROCEDURE NOTE ---
DATE OF SERVICE: 10/17/2020 Physician: Deborah Mcbride MD, [facility] INDICATION: Coronary artery disease, history of TAVR in 2019. CARDIAC RISK FACTORS: Male gender, advanced age, hyperlipidemia, hypertension. DESCRIPTION OF PROCEDURE: After signing informed consent, the patient underwent a Lexiscan pharmaceutical stress test with nuclear myocardial perfusion imaging. RESTING HEART RATE: 66. PEAK HEART RATE: 94. RESTING BLOOD PRESSURE: 139/76. PEAK BLOOD PRESSURE: 144/74. Lexiscan was infused per protocol. The patient had mild shortness of breath, no chest pain. Oxygen saturation was 96-98% on room air throughout the test. RESTING EKG: Normal sinus rhythm, within normal limits. EKG AT PEAK: No new ST segment or T-wave changes develop with pharmaceutical stress. SUMMARY: 1. Normal resting EKG. 2. No ischemic changes developed by EKG criteria. 3. Nuclear images were reported separately and showed: Normal perfusion, no areas of infarct or ischemia, LVEF >70%. IMPRESSION: Normal stress test. cc: Rosendo Howard MD TD: 10/17/2020 16:37 MTDD
--- NOTE | 2020-10-18 09:27 | Nuclear Medicine Report ---
PROCEDURE: Rest and pharmacological myocardial perfusion SPECT with gated imaging and ejection fraction INDICATIONS: CAD RADIOPHARMACEUTICAL: 10.0 mCi Tc-99m Myoview IV at rest and 41.4 mCi Tc-99m Myoview IV at peak exerc ise. [id number] was performed. TECHNIQUE: Radiopharmaceutical was injected at peak stress test, and also at rest. SPECT images wer e obtained. SPECT myocardial perfusion images were displayed in short axis, horizontal long axis, an d vertical long axis views. Gated images were reviewed using Auto[employer]ANT software. COMPARISON: None available. FINDINGS: Raw data: There is good myocardial labeling by radiotracer. No significant motion artifacts. Lung- to-heart ratio is .043 (normal is less than 0.38 for tetrafosmin tracer). Left ventricle function: Gated images demonstrate normal left ventricle wall thickening. No segment al wall motion abnormality. No transient ischemic dilation; TID is 1.14 (normal less than 1.3). The left ventricle resting end-diastolic volume is normal. Left ventricle ejection fraction is > 70%; n ormal values are above 45%. Myocardial perfusion: There is normal distribution of activity in the left and right ventricular natali cardium. No fixed or reversible perfusion defects. IMPRESSION: 1. Normal myocardial perfusion images. No perfusion defect to suggest myocardial ischemia or infarct. 2. Normal left ventricular volume and systolic function. 3. Elevated Qeuj-rh-tmepv activity ratio (LHR), which is an dependent predictor of adverse cardiac ev ent. 4. Please correlate with stress EKG report. PQRS ATTESTATIONS: Measure 322 - Is this imaging test primarily performed on a low-risk surgery patient for preoperative evaluation within 30 days preceding their low-risk non-cardiac surgery? Low-risk surgery is defined as cardiac or myocardial infarction less than 1%, including (but not limited to) endoscopic pr ocedures, superficial procedures, cataract surgery, and excisional breast surgery: Answer: No Measure 323 - Is this imaging test performed primarily for the monitoring of an asymptomatic patient who had percutaneous coronary intervention on the visit date or within 2 years of the visit date? An swer: No Measure 324 - Is this imaging test performed primarily for the initial detection and risk assessment on an asymptomatic, low coronary heart disease patient? Low CHD risk definition = clinicians should consider the maximum number of available patient factors used to estimate risk based on [place] (A TP III criteria), typically age, gender, diabetes, smoking status, and use of blood pressure medicati on, and integrate age appropriate estimates for missing elements, such as LDL or standard blood press ure. Answer: No Reviewed by: Rama Mcconnell MD on 10/18/2020 8:26 AM MIGEL Approved by: Rama Mcconnell MD on 10/18/2020 8:26 AM AKOPAL Station ID: [id number]
== END 2020-10-17 12:25 | disposition home or self-care (01) ==
LOC: DI 12:24
PROVIDERS: ATTEND Family Medicine
DX: I25.10 Atherosclerotic heart disease of native coronary artery without angina pectoris (principal)
CPT/HCPCS: 78452; 93017; A9500; J2785

== ENCOUNTER 2020-11-05 20:33 | Outpatient (CLI) | payer MEDICARE, BC | END 2020-11-05 20:34 | disposition home or self-care (01) | LOC: COV 20:33 | PROVIDERS: ATTEND Orthopaedic Surgery | DX: Z01.812 Encounter for preprocedural laboratory examination (principal); Z20.822 Contact with and (suspected) exposure to COVID-19 ==

== ENCOUNTER 2021-01-06 14:47 | Outpatient (CLI) | payer MEDICARE, BC ==
[2021-01-06 14:59] LABS: BASOPHILS # (AUTO) 0.1 10^3/uL (0.0-0.1); BASOPHILS % (AUTO) 0.7 %; EOSINOPHILS # (AUTO) 0.2 10^3/uL (0.0-0.7); EOSINOPHILS % (AUTO) 1.9 %; HCT - HEMATOCRIT 38.9 % (42.0-52.0); HGB - HEMOGLOBIN 12.9 g/dL (14.0-18.0); LYMPHOCYTES # (AUTO) 2.9 10^3/uL (1.5-3.5); LYMPHOCYTES % (AUTO) 23.7 %; MEAN CORPUSCULAR HEMOGLOBIN 29.5 pg (27.0-31.0); MEAN CORPUSCULAR HGB CONC 33.2 g/dL (32.0-36.0); MEAN CORPUSCULAR VOLUME 88.8 fL (80.0-94.0); MEAN PLATELET VOLUME 8.3 fL (7.4-11.4); MONOCYTES # (AUTO) 1.3 10^3/uL (0.0-1.0); MONOCYTES % (AUTO) 10.4 %; NEUTROPHILS # (AUTO) 7.7 10^3/uL (1.5-6.6); NEUTROPHILS % (AUTO) 62.8 %; PLT - PLATELET COUNT 388 10^3/uL (130-450); RED BLOOD COUNT 4.38 10^6/uL (4.70-6.10); RED CELL DISTRIBUTION WIDTH 12.8 % (12.0-15.0); WHITE BLOOD COUNT 12.2 x10^3/uL (4.8-10.8)
[2021-01-06 15:22] LABS: ALBUMIN 3.8 g/dL (3.2-5.5); ALBUMIN/GLOBULIN RATIO 0.9 (1.0-2.2); BILIRUBIN,TOTAL 0.7 mg/dL (0.2-1.0); CALCIUM 9.7 mg/dL (8.5-10.3); TOTAL PROTEIN 8.1 g/dL (6.7-8.2)
== END 2021-01-06 14:48 | disposition home or self-care (01) ==
LOC: LAB 14:47
PROVIDERS: ATTEND Family Medicine
DX: R50.9 Fever, unspecified (principal); I27.81 Cor pulmonale (chronic); I10 Essential (primary) hypertension; G47.33 Obstructive sleep apnea (adult) (pediatric)
CPT/HCPCS: 36415; 80053; 85025; 85379; 85651

== ENCOUNTER 2021-01-06 14:49 | Outpatient (CLI) | payer MEDICARE, BC ==
--- NOTE | 2021-01-06 15:29 | XRAY Report ---
PROCEDURE: Chest 2 View X-Ray INDICATIONS: FEVER WITH CHILLS/ ESSENTIAL HYPERTENSION TECHNIQUE: 2 view(s) of the chest. COMPARISON: None. FINDINGS: Surgical changes and devices: Chest single view 08/25/2020 and 2 view chest 07/31/2020.. Lungs and pleura: No pleural effusions or pneumothorax. Lungs are clear. Mediastinum: Mediastinal contours are normal. Heart size is normal. Bones and chest wall: No suspicious bony abnormalities. Soft tissues appear unremarkable. IMPRESSION: Mild interstitial prominence, stable over time, no acute disease is found. No focal pneu monia identified. Reviewed by: Jasbir Bright MD on 01/06/2021 3:28 PM PDT Approved by: Jasbir Bright MD on 01/06/2021 3:28 PM PDT Station ID: [id number]
== END 2021-01-06 14:50 | disposition home or self-care (01) ==
LOC: DI 14:49
PROVIDERS: ATTEND Family Medicine
DX: R50.9 Fever, unspecified (principal); I27.81 Cor pulmonale (chronic); I10 Essential (primary) hypertension; G47.33 Obstructive sleep apnea (adult) (pediatric)
CPT/HCPCS: 36415; 80053; 85025; 85379; 85651

== ENCOUNTER 2021-01-15 09:55 | Outpatient (CLI) | payer MEDICARE, BC ==
[2021-01-15 10:15] LABS: BASOPHILS # (AUTO) 0.1 10^3/uL (0.0-0.1); BASOPHILS % (AUTO) 0.8 %; EOSINOPHILS # (AUTO) 0.4 10^3/uL (0.0-0.7); EOSINOPHILS % (AUTO) 4.3 %; HCT - HEMATOCRIT 39.6 % (42.0-52.0); HGB - HEMOGLOBIN 12.8 g/dL (14.0-18.0); LYMPHOCYTES # (AUTO) 2.6 10^3/uL (1.5-3.5); LYMPHOCYTES % (AUTO) 27.5 %; MEAN CORPUSCULAR HEMOGLOBIN 28.7 pg (27.0-31.0); MEAN CORPUSCULAR HGB CONC 32.3 g/dL (32.0-36.0); MEAN CORPUSCULAR VOLUME 88.8 fL (80.0-94.0); MEAN PLATELET VOLUME 8.7 fL (7.4-11.4); MONOCYTES # (AUTO) 1.3 10^3/uL (0.0-1.0); NEUTROPHILS # (AUTO) 5.2 10^3/uL (1.5-6.6); NEUTROPHILS % (AUTO) 53.9 %; PLT - PLATELET COUNT 383 10^3/uL (130-450); RED BLOOD COUNT 4.46 10^6/uL (4.70-6.10); WHITE BLOOD COUNT 9.6 x10^3/uL (4.8-10.8)
[2021-01-15 10:30] LABS: CALCIUM 9.2 mg/dL (8.5-10.3); CREATININE 0.9 mg/dL (0.6-1.2); POTASSIUM 4.3 mmol/L (3.5-5.0)
== END 2021-01-15 09:56 | disposition home or self-care (01) ==
LOC: LAB 09:55
PROVIDERS: ATTEND Family Medicine
DX: R70.0 Elevated erythrocyte sedimentation rate (principal); R06.82 Tachypnea, not elsewhere classified
CPT/HCPCS: 36415; 80048; 83880; 85025; 85379; 85651

== ENCOUNTER 2021-01-16 14:49 | Outpatient (CLI) | payer MEDICARE, BC ==
[2021-01-16] MEDS ORDERED: IOVERSOL 320 100 ML VIAL IVP ONE ×2 (14:54→16:14)
--- NOTE | 2021-01-16 16:09 | CT Report ---
PROCEDURE: ANGIO CHEST W/WO INDICATIONS: FEVER, TACHYPNEA, FEVER WITH CHILLS CONTRAST: IV CONTRAST: Optiray 320 ml: 80 PO CONTRAST: *NO PO CONTRAST TECHNIQUE: After the administration of intravenous contrast, 2 mm thick sections acquired from the pulmonary api cassandra to the posterior costophrenic angles. 3-dimensional maximum intensity projection (MIP) coronal a nd sagittal reformats were then acquired through the thorax. For radiation dose reduction, the follow ing was used: automated exposure control, adjustment of mA and/or kV according to patient size. COMPARISON: Chest x-ray dated 01/06/[address] dated 08/30/2019 FINDINGS: Image quality: Excellent. Pulmonary arteries: Pulmonary arteries are normal in size, and demonstrate no intraluminal filling d efects to suggest central pulmonary embolism. Lungs and pleura: There is mild basilar predominant reticulonodular interstitial pulmonary opacity, a s before. Small scattered bilateral subcentimeter pulmonary nodules are unchanged. No new pulmonary n odules. Calcified granuloma within the left lower lobe posteriorly. No pleural effusions or pneumotho rax. Central and peripheral airways are patent. Mediastinum: Heart size is normal, without pericardial effusion aortic valve replacement.. Severe c alcification of the coronary vasculature. No mediastinal or hilar adenopathy. Thoracic aorta is norm al in caliber and enhancement. Esophagus is normal in caliber, without hiatal hernia. Bones and chest wall: No suspicious bony lesions. Ribs and thoracic spine appear intact throughout. No axillary or supraclavicular adenopathy. The thyroid is normal in size and there are no incident al findings. Abdomen: Visualized portions of the upper abdomen demonstrate multiple calculi within the gallbladder lumen, and are otherwise unremarkable. IMPRESSION: 1. No acute process. No pulmonary embolus. 2. Coronary artery disease. 3. Moderate chronic interstitial lung disease. 4. No change in small subcentimeter bilateral pulmonary nodules. 5. Cholelithiasis. CLINICAL RECOMMENDATION STATEMENTS: In patients <35 years with an ITN detected on CT, MRI, or extrathyroidal ultrasound, the Committee re commends further evaluation with dedicated thyroid ultrasound if the nodule is ?1 cm and has no suspi cious imaging features, and if the patient has normal life expectancy. In patients ?35 years with an ITN detected on CT, MRI, or extrathyroidal ultrasound, the Committee re commends further evaluation with dedicated thyroid ultrasound if the nodule is ?1.5 cm and has no kimberly picious imaging features, and if the patient has normal life expectancy. (ACR, 2014) Reviewed by: Gaby Tavera MD on 01/16/2021 4:07 PM PDT Approved by: Gaby Tavera MD on 01/16/2021 4:07 PM PDT Station ID: [id number]
== END 2021-01-16 14:50 | disposition home or self-care (01) ==
LOC: DI 14:49
PROVIDERS: ATTEND Family Medicine
DX: A68.9 Relapsing fever, unspecified (principal); R06.82 Tachypnea, not elsewhere classified; J84.9 Interstitial pulmonary disease, unspecified; I25.10 Atherosclerotic heart disease of native coronary artery without angina pectoris; K80.20 Calculus of gallbladder without cholecystitis without obstruction
CPT/HCPCS: 71275; Q9967

== ENCOUNTER 2021-01-17 16:13 | Outpatient (CLI) | payer MEDICARE, BC ==
--- NOTE | 2021-01-17 23:44 | Ultrasound Report ---
PROCEDURE: Duplex Ext Veins Bilateral INDICATIONS: RAMONA CASTILLO TECHNIQUE: Real-time imaging, as well as color and pulse Doppler interrogation, were performed of the deep veins of both legs from the inguinal ligament to the popliteal fossa. COMPARISON: None FINDINGS: The deep veins are normally compressible, and free of intraluminal thrombus. Color and pu lse Doppler demonstrate normal phasic intravascular flow. There is normal augmentation response to d istal compression maneuver. IMPRESSION: No evidence of DVT, bilateral lower extremities. Reviewed by: Papi Rojas MD on 01/17/2021 10:43 PM MIGEL Approved by: Papi Rojas MD on 01/17/2021 10:43 PM MIGEL Station ID: [id number]
== END 2021-01-17 16:14 | disposition home or self-care (01) ==
LOC: DI 16:13
PROVIDERS: ATTEND Family Medicine
DX: R06.82 Tachypnea, not elsewhere classified (principal)
CPT/HCPCS: 93970

== ENCOUNTER 2021-03-18 10:58 | Outpatient (CLI) | payer MEDICARE, BC ==
--- NOTE | 2021-03-18 11:44 | SLEEP CARE CONSULTATION ---
Information from patient questionnaire entered by Nahed Garcia. I have reviewed and concur with the information entered by Nahed Garcia. This document represents the service I personally performed and the decisions made by , Kristen Tolliver ARNP. History of Present Illness Service Date and Time: 03/18/2021 1058 Previous diagnosis: Moderate, Obstructive Sleep Apnea-Hypopnea Syndrome AHI: 18.0 (in 2018) Reason for follow up: first compliance after device update Accompanied by: Spouse Equipment type: CPAP Equipment obtained from: [employer] (getting supplies as needed) Mask style: Nasal Backup mask available: Yes (old mask) Last cushion change: 1 month Prior sleep studies: Yes Year and Where: 2018 - [facility] Type of Sleep Study: Polysomnography HPI additional information: NICHELLE MANTILLA was diagnosed to have moderate, AHI 18.0, obstructive sleep apnea- hypopnea syndrome and returned today with spouse for CPAP therapy first compliance after updating device follow-up. CPAP Compliance Data - Data Reviewed with Patient Average duration of nightly device use: 9 hr 23 min Compliance rate %: 90 Current pressure setting (cmH2O): 9-13 (median 9.4, avg 10.4, max 11.5) Humidity settin Average residual AHI: 0.1 Subjective Patient concerns: reports: mask leak noise, other (snore while using device). denies: aerophagia, mask discomfort, air blowing in eyes, condensation in mask/hose, nasal congestion, dry mouth, nose, throat, epistaxis Observed to snore while using device: No Current pressure setting perceived as: too low On therapy, patient: reports: sleeping better, awakening more refreshed, being more awake and alert during the day, more rested overall. denies: drowsiness while driving Initial [place] Sleepiness Scale score: 6 (in 2018) Current [place] Sleepiness Scale score: 6 Allergies and Home Medications Home medication list reviewed: Yes (no changes) Review of Systems Review of systems same as previous: Yes (no changes) Physical Exam Heart Rate: 73 O2 Saturation: 94 Height: 5 ft 5 in Weight: 150 lb Body Mass Index: 25.0 BMI Classification: Overweight Impression and Plan 1. Obstructive Sleep Apnea-Hypopnea Syndrome, moderate, with good treatment compliance and excellent apnea control. On CPAP therapy, the patient has better sleep quality and is more rested overall. Patient feels that his pressure is a little bit too low. He has excellent apnea control at 0.1 residual AHI. I will adjust his pressure to 10 to 13 cm of water to see if this will help it feel better. His states he does snore when using his device. He is getting used to his new device but thinks he needs some more filters for it. I encouraged him to reach out to [facility] about getting more supplies. Patient's apnea severity and rationale for treatment to reduce apnea, improve sleep quality and reduce cardiovascular and cerebrovascular events was reviewed. I also reviewed the benefit of consistent device use of CPAP for cardiac disease. 2. Hypoxia, nocturnal. Patient uses 3 L/NC with his CPAP. Patient has a oxygen concentrator for his nocturnal oxygen. He states he stopped using the oxygen when he found out about the recall on his other device. He is concerned that the oxygen concentrator has not been serviced in over 6 months and would like to get it serviced. He has been dealing with infections in his nose and thinks it is related. I will write an order to have it serviced and also to update his supplies since he needs needs new oxygen tubing/cannula. * Change auto CPAP pressure to 10-13 cmH2O * Service oxygen concentrator and update oxygen tubing/cannula * Notify me if snoring with mask or feeling that the pressure is too much or too little * Attempt to lose weight * Call this office if any problems using CPAP * Return for follow up in 1 year, or sooner if concerns arise Counseling Topics: Spare mask, Weight loss health impact Visit Type: In Office Other Participants: Spouse/Significant Other Time Spent with Patient (minutes): 23 Provider Statement: I spent 100% of the Face to Face Visit with the patient with greater than 50% spent counseling the patient and coordination of care.
== END 2021-03-18 10:59 | disposition home or self-care (01) ==
LOC: SC 10:58
PROVIDERS: ATTEND Nurse Practitioner Family
DX: G47.33 Obstructive sleep apnea (adult) (pediatric) (principal); R09.02 Hypoxemia; E66.3 Overweight; Z68.25 Body mass index [BMI] 25.0-25.9, adult
CPT/HCPCS: 99213; G0463; 99212

== ENCOUNTER 2021-10-22 10:22 | Outpatient (CLI) | payer MEDICARE, BC ==
[2021-10-22 10:40] LABS: BASOPHILS # (AUTO) 0.1 10^3/uL (0.0-0.1); BASOPHILS % (AUTO) 0.7 %; EOSINOPHILS # (AUTO) 0.3 10^3/uL (0.0-0.7); EOSINOPHILS % (AUTO) 3.5 %; HCT - HEMATOCRIT 46.7 % (42.0-52.0); HGB - HEMOGLOBIN 15.3 g/dL (14.0-18.0); LYMPHOCYTES % (AUTO) 30.2 %; MEAN CORPUSCULAR HEMOGLOBIN 30.1 pg (27.0-31.0); MEAN CORPUSCULAR HGB CONC 32.8 g/dL (32.0-36.0); MEAN CORPUSCULAR VOLUME 91.9 fL (80.0-94.0); MEAN PLATELET VOLUME 9.1 fL (7.4-11.4); MONOCYTES # (AUTO) 0.8 10^3/uL (0.0-1.0); MONOCYTES % (AUTO) 8.5 %; NEUTROPHILS # (AUTO) 5.6 10^3/uL (1.5-6.6); NEUTROPHILS % (AUTO) 56.7 %; PLT - PLATELET COUNT 267 10^3/uL (130-450); RED BLOOD COUNT 5.08 10^6/uL (4.70-6.10); RED CELL DISTRIBUTION WIDTH 13.2 % (12.0-15.0); WHITE BLOOD COUNT 9.8 x10^3/uL (4.8-10.8)
[2021-10-22 10:51] LABS: INR 1.1 (0.8-1.2); PT - PROTHROMBIN TIME 12.8 secs (9.9-12.6)
[2021-10-24 11:11] LABS: ANA SCREEN NEGATIVE (NEGATIVE)
== END 2021-10-22 10:23 | disposition home or self-care (01) ==
LOC: LAB 10:22
PROVIDERS: ATTEND Internal Medicine Pulmonary Disease
DX: J98.4 Other disorders of lung (principal); R12 Heartburn; R06.09 Other forms of dyspnea; K21.9 Gastro-esophageal reflux disease without esophagitis; I25.10 Atherosclerotic heart disease of native coronary artery without angina pectoris
CPT/HCPCS: 36415; 83880; 85025; 85610; 85651; 86038; 86140

== ENCOUNTER 2021-11-22 08:00 | Outpatient (CLI) | payer MEDICARE, BC | END 2021-11-23 18:58 | disposition home or self-care (01) | LOC: LAB.N 08:00 | PROVIDERS: ATTEND Family Medicine | DX: R82.90 Unspecified abnormal findings in urine (principal) | CPT/HCPCS: 87086 ==